=== PATIENT | female | born 1970 | race Caucasian/White ===

== ENCOUNTER 2016-11-02 11:16 | Emergency (ER) | payer OTHER ==
[~2016-11-02] VITALS: Ht 157.5 cm; Wt 81.6 kg
--- NOTE | 2016-11-02 11:33 | ED GI/GU/ABDOMINAL COMPLAINT ---
History of Present Illness General Chief Complaint: Abdominal Pain/Flank Pain Stated Complaint: BACK PAIN FLANK PAIN INTO ABD Source: patient Exam Limitations: no limitations Vital Signs & Intake/Output Vital Signs & Intake/Output Vital Signs Date Time Temp Pulse Resp B/P Pulse O2 O2 Flow FiO2 Ox Delivery Rate 11/02 1523 80 150/86 11/02 1341 97.7 81 18 138/64 95 Room Air 11/02 1123 97.6 85 24 152/89 96 Room Air Allergies Coded Allergies: Sulfa (Sulfonamide Antibiotics) (HIVES 11/02/16) Reconcile Medications Ibuprofen 800 MG TABLET 1 TAB PO TID pain Norethindrone-E.estradiol-Iron (Junel Fe 1 MG-20 Mcg Tablet) 1 MG-20 MCG (21)/75 MG (7) TABLET 1 TAB PO DAILY CONTROL/MENSTRUATION (Reported) Oxycodone HCl/Acetaminophen (Percocet 5-325 MG Tablet) 5 MG-325 MG TABLET 1-2 TAB PO Q6P PRN pain Tamsulosin HCl (Flomax) 0.4 MG CAP.ER.24H 1 CAP PO DAILY kidney stone Triage Note: LEFT FLANK PAIN THAT RADIATES INTO LEFT AND RIGHT GROIN SINCE THIS MORNING. PT STATES SHE FEELS LIKE SHE HAS TO URINATE ALL THE TIME. DENIES BLOOD IN URINE Triage Nurses Notes Reviewed? yes ? n Is pt currently ? No Onset: Abrupt Duration: hour(s): (couple) Quality/Severity: moderate, sharpness, severe Location: left flank Radiation: LLQ Activities at Onset: none No Modifying Factors: none HPI: 46-year-old female comes into emergency room with complaints of sudden onset left sided back pain and left-sided abdominal pain that began a few hours ago. Pain is sharp. continuous. Nothing makes it better or worse. Denies any urinary symptoms. Denies any vomiting. Patient has not been able to get comfortable. Denies any other associated symptoms. (PHOENIX RAMON) Past History Travel History Traveled to [place] past 21 day No Medical History Any Pertinent Medical History? none CAREER CENTER DIRECTOR/Reproductive: BCP Surgical History Surgical History: non-contributory Psychosocial History What is your primary language Yemeni Tobacco Use: Never used ETOH Use: denies use Illicit Drug Use: denies illicit drug use Family History Hx Contributory? No (PHOENIX RAMON) Review of Systems Review of Systems Constitutional: Reports: no symptoms. EENTM: Reports: no symptoms. Respiratory: Reports: no symptoms. Cardiovascular: Reports: no symptoms. GI: Reports: see HPI. Genitourinary: Reports: no symptoms. Musculoskeletal: Reports: see HPI. Skin: Reports: no symptoms. Neurological/Psychological: Reports: no symptoms. Hematologic/Endocrine: Reports: no symptoms. Immunologic/Allergic: Reports: no symptoms. All Other Systems: Reviewed and Negative (PHOENIX RAMON) Physical Exam Physical Exam General Appearance: well developed/nourished, alert, awake, moderate distress Head: atraumatic, normal appearance Eyes: Bilateral: normal appearance, EOMI. Ears, Nose, Throat, Mouth: hearing grossly normal, moist mucous membrane Neck: normal inspection, full range of motion Respiratory: normal breath sounds, no respiratory distress Cardiovascular: regular rate/rhythm Gastrointestinal: soft, non-tender Back: CVA tenderness (L) Extremities: normal range of motion Neurologic/Psych: awake, alert, oriented x 3, normal gait, normal mood/affect Core Measures ACS in differential dx? No Severe Sepsis Present: No Septic Shock Present: No (PHOENIX RAMON) Progress Differential Diagnosis: AMI, appendicitis, biliary colic, bowel obstruction, cholecystitis, diverticulitis, ectopic , gastritis, ischemic bowel, kidney stone, ovarian cyst, ovarian torsion, pancreatitis, PID/cervicitis, peptic ulcer, perforated viscous, SBO, UTI/pyelo Plan of Care: Orders Procedure Date/time Status URINE 11/02 1133 Complete URINALYSIS 11/02 1133 Complete HUMAN BETA HCG SCREEN 11/02 1133 Complete COMPREHENSIVE METABOLIC PANEL 11/02 1133 Complete CBC WITHOUT DIFFERENTIAL 11/02 1133 Complete Laboratory Tests 11/02/16 1316: Urinalysis LIGHT H, Urine Color YEL, Urine Clarity CLEAR, Urine pH 7.0, Ur Specific [place] 1.020, Urine Protein NEG, Urine Ketones 40 H, Urine Nitrite NEG, Urine Bilirubin NEG, Urine Urobilinogen 0.2, Ur Leukocyte Esterase NEG, Ur Microscopic SEDIMENT EXAMINED, Urine RBC 10-15 H, Urine WBC 1-3 H, Ur Epithelial Cells MOD H, Urine Bacteria RARE H, Urine Mucus RARE, Urine Hemoglobin SMALL H, Urine Glucose NEG, Urine Test NEGATIVE 11/02/16 1142: Anion Gap 17 H, Estimated GFR > 60, BUN/Creatinine Ratio 18.9, Glucose 113 H, Calcium 10.2, Total Bilirubin 0.6, AST 28, ALT 31, Alkaline Phosphatase 86, Total Protein 7.3, Albumin 4.4, Globulin 2.9, Albumin/Globulin Ratio 1.5, Total Beta HCG NEGATIVE, CBC w Diff NO MAN DIFF REQ, RBC 4.87, MCV 85.9, MCH 29.3, RDW 12.8, MPV 7.6, Gran % 90.1 H, Lymphocytes % 7.2 L, Monocytes % 2.4, Eosinophils % 0.1, Basophils % 0.2, Absolute Granulocytes 12.1 H, Absolute Lymphocytes 1.0 L, Absolute Monocytes 0.3, Absolute Eosinophils 0, Absolute Basophils 0, PUBS MCHC 34.0 Diagnostic Imaging: Viewed by Me: CT Scan. Discussed w/RAD: CT Scan. Radiology Impression: SERVICE DATE: 11/02/16 EXAM TYPE: CAT - CT ABD & PELVIS W/O IV CONTRAS EXAMINATION: CT ABDOMEN AND PELVIS WITHOUT CONTRAST CLINICAL INFORMATION: Flank pain. COMPARISON: None TECHNIQUE: Multidetector volumetric imaging was performed from the superior aspect of the liver through the pubic symphysis. Sagittal and coronal reformatted images were obtained on the technologist's workstation. DLP: 567 mGy-cm FINDINGS: LUNG BASES: The heart size is normal. Minimal atelectasis left lung base is noted. LIVER, GALLBLADDER, AND BILIARY TREE: The liver is diffusely attenuated but normal size and shape. No focal hepatic lesion or intrahepatic ductal dilatation seen. The gallbladder is unremarkable with no evidence of radiopaque gallstones, gallbladder wall thickening, or obvious pericholecystic inflammatory changes. PANCREAS: Unremarkable. SPLEEN: Unremarkable. ADRENAL GLANDS: Unremarkable. KIDNEYS AND URETERS: Right kidney is normal size, shape oxygenation. The left kidney is enlarged with moderate perinephric fluid collection and stranding. Is mild hydroureteronephrosis secondary to a obstructive radiopaque 3 mm right UVJ stone. A 2 mm nonobstructive radiopaque calculi seen in lower pole calyx left kidney. BLADDER: Unremarkable. GASTROINTESTINAL TRACT: There is scattered stool seen in the right with scattered diverticuli. No colonic distention seen. The small bowel loops are unremarkable. Appendix is normal caliber. The stomach is nondistended and appears unremarkable. ABDOMINAL WALL: No significant hernia is appreciated. LYMPH NODES: There are several abnormal sized retroperitoneal lymph nodes few scattered mesenteric lymph nodes are seen as well. Largest lymph node in short axis in the aortocaval region image 36, series 2 measures 1.5 cm. VASCULAR: Unremarkable. PELVIC VISCERA: There is a 3.9 x 3.3 x 4.2 cm hypodense lesion left adnexa measuring 17 Hounsfield units suggestive of cyst, probably left ovary in origin. No additional lesions seen. There are scattered phleboliths in the pelvis. No free fluid seen. OSSEOUS STRUCTURES: Moderate levoscoliosis upper/mid lumbar spine with moderate spondylosis noted. No lytic process. IMPRESSION: Mild hydroureteronephrosis secondary to a 3 mm obstructive left UVJ stone. There is minimal moderate perinephric stranding and fluid collection. 2 mm nonobstructive radiopaque calculi lower pole calyx left kidney. There are abnormal size aorta caval and para-aortic lymph nodes probably secondary to adjacent inflammatory process or obstruction. There is a moderate size left adnexal cyst probably ovarian origin. Mild constipation. Normal appendix. Diffuse hepatic steatosis DICTATED BY: CIRA CORONADO MD DATE/TIME DICTATED:11/02/161311 BUSINESS PROCESS ANALYST:JOANN DATE/TIME TRANSCRIBED:1311 Initial ED EKG: none (PHOENIX RAMON) Departure Departure Disposition: HOME OR SELF CARE Condition: Stable Clinical Impression Primary Impression: Kidney stone on left side Referrals: KAMILA FIELDS MD PATIENT HAS NO PRIMARY CARE DR Additional Instructions: Take Percocet ibuprofen and Flomax as prescribed. Follow-up with urologist provided. Return if any concerns worsening symptoms Please go over all results of today's visit with your primary care doctor. Contact your primary care doctor to let them know you were here in the emergency room. There may be nonspecific findings which may not be related to your visit today here in the emergency room but may require further evaluation and chronic monitoring by your primary care doctor. If you had a laceration today the chance of foreign body always remains. You should follow-up with your primary care doctor for recheck in 3-5 days for a wound check. If you had an x-ray done there is a chance that a fracture could have been missed on initial read and you should follow-up with your primary care doctor for repeat x-rays if symptoms persist. If your blood pressure was elevated here in the emergency room please have rechecked by her primary care doctor within the next 48 hours by your primary care doctor. If you were prescribed a narcotic here in the emergency room or any type of controlled substances you're not allowed to drive while taking this medication or operate any type of heavy machinery. Narcotics can make you feel lightheaded dizziness nausea and can cause constipation. You may need to medicinal plant picker a stool softener. Thank you for choosing [facility] emergency room. Please return to the emergency room immediately if you have any other concerns worsening of symptoms. Departure Forms: Customer Survey General Discharge Information Prescriptions: Current Visit Scripts Oxycodone HCl/Acetaminophen (Percocet 5-325 MG Tablet) 1-2 TAB PO Q6P PRN pain #20 TAB Ibuprofen 1 TAB PO TID #30 TAB Tamsulosin HCl (Flomax) 1 CAP PO DAILY #7 CAP Comments 11/02/2016 3:27:35 PM Patient's pain is under control. Case was discussed with Dr. denny and CAT scan was reviewed. Patient clinically looks well. Nontoxic-appearing. In no apparent distress on discharge. Follow-up with urologist this week. Return if any other concerns worsening symptoms. Patient understands and agrees with plan of care. Patient was reevaluated multiple times. (PHOENIX RAMON) PA/GENERAL FARM MANAGER Co-Sign Statement Statement: ED Attending supervision documentation- [] I saw and evaluated the patient. I have also reviewed all the pertinent lab results and diagnostic results. I agree with the findings and the plan of care as documented in the PA's/GENERAL FARM MANAGER's documentation. x I have reviewed the ED Record and agree with the PA's/GENERAL FARM MANAGER's documentation. [] Additions or exceptions (if any) to the PAs/GENERAL FARM MANAGER's note and plan are summarized below: [] (GLENNY JOY,TERA)
[2016-11-02 12:06] LABS: ABSOLUTE BASOPHIL COUNT 0 /CUMM (0.0-0.2); ABSOLUTE EOSINOPHIL COUNT 0 /CUMM (0.0-0.7); ABSOLUTE GRANULOCYTE CT 12.1 /CUMM (1.4-6.5); ABSOLUTE MONOCYTE COUNT 0.3 /CUMM (0.10-0.60); BASOPHIL % 0.2 % (0.0-2.0); EOSINOPHIL % 0.1 % (0-5); HEMATOCRIT 41.8 % (37-47); MEAN CORPUSCULAR HGB 29.3 PG (27.0-31.0); MEAN CORPUSCULAR VOLUME 85.9 FL (81.0-99.0); MEAN PLATELET VOLUME 7.6 FL (7.4-10.4); PLATELET COUNT 349 /CUMM (130-400); RBC DISTRIBUTION WIDTH 12.8 % (11.5-14.5); RED BLOOD CELL CT 4.87 /CUMM (4.20-5.40); WHITE BLOOD CELL COUNT 13.4 /CUMM (4.8-10.8)
[2016-11-02 12:20] LABS: GRANULOCYTE % 90.1 % (42.2-75.2)
--- NOTE | 2016-11-02 13:28 | CT SCAN REPORT ---
EXAMINATION: CT ABDOMEN AND PELVIS WITHOUT CONTRAST CLINICAL INFORMATION: Flank pain. COMPARISON: None TECHNIQUE: Multidetector volumetric imaging was performed from the superior aspect of the liver through the pubic symphysis. Sagittal and coronal reformatted images were obtained on the technologist's workstation. DLP: 567 mGy-cm FINDINGS: LUNG BASES: The heart size is normal. Minimal atelectasis left lung base is noted. LIVER, GALLBLADDER, AND BILIARY TREE: The liver is diffusely attenuated but normal size and shape. No focal hepatic lesion or intrahepatic ductal dilatation seen. The gallbladder is unremarkable with no evidence of radiopaque gallstones, gallbladder wall thickening, or obvious pericholecystic inflammatory changes. PANCREAS: Unremarkable. SPLEEN: Unremarkable. ADRENAL GLANDS: Unremarkable. KIDNEYS AND URETERS: Right kidney is normal size, shape oxygenation. The left kidney is enlarged with moderate perinephric fluid collection and stranding. Is mild hydroureteronephrosis secondary to a obstructive radiopaque 3 mm right UVJ stone. A 2 mm nonobstructive radiopaque calculi seen in lower pole calyx left kidney. BLADDER: Unremarkable. GASTROINTESTINAL TRACT: There is scattered stool seen in the right with scattered diverticuli. No colonic distention seen. The small bowel loops are unremarkable. Appendix is normal caliber. The stomach is nondistended and appears unremarkable. ABDOMINAL WALL: No significant hernia is appreciated. LYMPH NODES: There are several abnormal sized retroperitoneal lymph nodes few scattered mesenteric lymph nodes are seen as well. Largest lymph node in short axis in the aortocaval region image 36, series 2 measures 1.5 cm. VASCULAR: Unremarkable. PELVIC VISCERA: There is a 3.9 x 3.3 x 4.2 cm hypodense lesion left adnexa measuring 17 Hounsfield units suggestive of cyst, probably left ovary in origin. No additional lesions seen. There are scattered phleboliths in the pelvis. No free fluid seen. OSSEOUS STRUCTURES: Moderate levoscoliosis upper/mid lumbar spine with moderate spondylosis noted. No lytic process. IMPRESSION: Mild hydroureteronephrosis secondary to a 3 mm obstructive left UVJ stone. There is minimal moderate perinephric stranding and fluid collection. 2 mm nonobstructive radiopaque calculi lower pole calyx left kidney. There are abnormal size aorta caval and para-aortic lymph nodes probably secondary to adjacent inflammatory process or obstruction. There is a moderate size left adnexal cyst probably ovarian origin. Mild constipation. Normal appendix. Diffuse hepatic steatosis
[2016-11-02] MEDS ORDERED: FLOMAX0.4 M1 PO (14:19)
[2016-11-02] MEDS ORDERED: PERCOCET 5-3251 EACH PO (14:19)
[2016-11-02] MEDS ORDERED: IBUPROFEN800 M1 PO (14:19)
[2016-11-02] MEDS ORDERED: JUNEL FE 1 MG-1 EACH PO (14:23)
[2016-11-02 15:23] VITALS: BP 150/86
== END 2016-11-02 15:33 ==
LOC: ERH 11:16
PROVIDERS: Physician Assistant Medical
DX: N20.0 Calculus of kidney (principal)
CPT/HCPCS: 74176; 81001; 81025; 96374; 96375; 96376; J1885; J2405